=== PATIENT | male | born 1955 | race African-American/Black ===

== ENCOUNTER 2018-06-09 07:57 | Day surgery (SDC) | payer BC ==
[2018-06-08 09:06] VITALS: BMI 22.1
[2018-06-09] MEDS ORDERED: PROPOFOL 20 ML ONE ×2 (08:22)
[2018-06-09 09:25] VITALS: TEMP 98
[2018-06-09 10:08] VITALS: BP 143/81; PULSE 72
--- NOTE | 2018-06-11 12:44 | PATH ---
Surgical Pathology Report Patient Name: GRADY MILLER [facility]. Rec. #: [id number] /Age/Gender: 1955 (Age: 62) / M Account: [id number] Location: [facility] Taken: 06/09/2018 Received: 06/09/2018 Reported: 06/11/2018 Physicians: Chandu Carroll M.D. Specimen(s) Received BX POLYP CECUM Clinical History History of polyps Postoperative diagnosis: Diverticulosis, polyp Final Diagnosis COLON, CECUM, BIOPSY: HYPERPLASTIC POLYP. Electronically Signed Alejo Shah M.D. Gross Description Received in formalin, labeled "biopsy polyp cecum" is a robertson, irregular portion of soft tissue measuring 0.8 cm. in greatest dimension. The specimen is submitted in toto in one cassette. /06/10/201806/10/2018
== END 2018-06-09 10:00 | disposition home or self-care (01) ==
LOC: FASU-ENDO 07:57
PROVIDERS: ATTEND Internal Medicine Gastroenterology
PROC: 0DBH8ZX Excision of Cecum, Via Natural or Artificial Opening Endoscopic, Diagnostic (ICD-10-PCS; principal; 2018-06-09 08:58)
DX: Z86.010 Personal history of colon polyps (principal); Z83.71 Family history of colonic polyps; K63.5 Polyp of colon; K57.30 Diverticulosis of large intestine without perforation or abscess without bleeding
CPT/HCPCS: 88305-TC

== ENCOUNTER 2023-08-19 07:48 | Day surgery (SDC) | payer OTHER ==
[2023-08-13 10:16] VITALS: BMI 22.4
[2023-08-19 09:56] VITALS: TEMP 97
[2023-08-19 09:57] VITALS: RESP 18
[2023-08-19 09:58] VITALS: BP 118/69; PULSE 68
== END 2023-08-19 10:31 | disposition home or self-care (01) ==
LOC: FASU-ENDO 07:48
PROVIDERS: ATTEND Internal Medicine Gastroenterology
PROC: 0DBN8ZX Excision of Sigmoid Colon, Via Natural or Artificial Opening Endoscopic, Diagnostic (ICD-10-PCS; principal; 2023-08-19 09:21)
DX: Z12.11 Encounter for screening for malignant neoplasm of colon (principal); K63.5 Polyp of colon; K57.30 Diverticulosis of large intestine without perforation or abscess without bleeding; Z83.719 Family history of colon polyps, unspecified
CPT/HCPCS: 88305-TC